=== PATIENT | female | born 1950 | race African-American/Black ===

== ENCOUNTER 2022-06-06 15:13 | Emergency (ER) | payer BC ==
[~2022-06-06] VITALS: Ht 172.7 cm; Wt 91.0 kg
[2022-06-06 15:18] VITALS: BP 153/90
== END 2022-06-06 17:06 | disposition home or self-care (01) ==
LOC: ER 15:13
DX: T17.298A Other foreign object in pharynx causing other injury, initial encounter (principal); I49.3 Ventricular premature depolarization; E11.9 Type 2 diabetes mellitus without complications; X58.XXXA Exposure to other specified factors, initial encounter; Y93.89 Activity, other specified; Y92.9 Unspecified place or not applicable
CPT/HCPCS: 71045; 93005; 99283